=== PATIENT | male | born 1955 | race Caucasian/White ===

== ENCOUNTER 2021-08-14 23:05 | Emergency (ER) | payer OTHER, SELFPAY ==
[2021-08-14 23:11] VITALS: BP 173/91; PULSE 81; RESP 16; TEMP 36.7; O2SAT 99
--- NOTE | 2021-08-14 23:18 | ED.EAR ---
HPI - Ear Problem General Chief complaint: Unspecified Stated complaint: Hearing aid cover stuck in ear Time Seen by Provider: 08/14/21 23:18 History of Present Illness HPI Narrative: 66-year-old male presents the emergency room for evaluation of a foreign object in his left ear. Patient states he was removing his hearing aid when the tip Related Data Allergies Allergy/AdvReac Type Severity Reaction Status Date / Time No Known Allergies Allergy Verified 02/03/21 07:14 Review of Systems Review of Systems: CONSTITUTIONAL: Denies fever, chills, or sweats. EYES: Denies visual changes, redness, or discharge. ENT: Reports foreign body in left ear CARDIOVASCULAR: Denies chest pain, palpitations, or edema. RESPIRATORY: Denies cough or dyspnea. GASTROINTESTINAL: Denies abdominal pain, nausea, vomiting, or diarrhea. GENITOURINARY: Denies dysuria or hematuria. SKIN: Denies rash or itching. MUSCULOSKELETAL: Denies back pain, joint pain, or myalgia. NEUROLOGIC: Denies headache, numbness, dizziness, or weakness. PSYCHIATRIC: Denies anxiety or depression. PMFSH Past Medical History Medical History Abnormal fasting glucose BMI 29.0-29.9,adult Colon cancer screening Elevated PSA Elevated PSA Encounter for preventive health examination Encounter for routine adult health examination without abnormal findings Encounter for special screening examination for neoplasm of prostate FHx: colon cancer Hearing loss HTN (hypertension) Mixed hyperlipidemia Multiple lipomas On correction drug therapy Family History Family History Mother Family history of lung cancer Patient's mother is Carcinoma of colon Other Family history of malignant neoplasm of ovary Social History Social History Smoking status: Never smoker Alcohol intake: current Exam Narrative: GENERAL: Well-appearing, well-nourished, and in no acute distress. HEAD: Normocephalic, atraumatic. EYES: PERRLA and EOMI. ENT: Nares clear, no rhinorrhea or epistaxis. Mucous membranes moist. Oropharynx without tonsillar hypertrophy exudate or other lesions. Very foreign object in the left ear canal CHEST: Clear to auscultation. No respiratory distress. No wheezes rales or rhonchi HEART: Regular rate and rhythm. No murmur heard. Normal peripheral pulses. EXTREMITIES: Normal range of motion. No edema. SKIN: Warm, dry, no rash. NEURO: No focal deficits. Alert and oriented x3. PSYCH: Normal mood and affect. Course Vital Signs Vital signs: Vital Signs Temperature 36.7 C 08/14/21 23:11 Pulse Rate 81 08/14/21 23:11 Respiratory Rate 16 08/14/21 23:11 Blood Pressure 173/91 H 08/14/21 23:11 Pulse Oximetry 99 08/14/21 23:11 Temperature 36.7 C 08/14/21 23:11 Pulse Rate 81 08/14/21 23:11 Respiratory Rate 16 08/14/21 23:11 Blood Pressure 173/91 H 08/14/21 23:11 Pulse Oximetry 99 08/14/21 23:11 Procedures Foreign Body Removal Foreign Body #1: Foreign Body Removal Date: 08/15/21 Foreign Body Removal Time: 00:07 Time Out Performed: yes Site: left and ear Description of foreign body: other Sedation/Analgesia: none Technique: removal with forceps Confirmed by:: direct visualization Complications: none Post-procedure exam: awake, alert Medical Decision Making Vital Signs Vital Signs: Vital Signs Temperature 36.7 C 08/14/21 23:11 Pulse Rate 81 08/14/21 23:11 Respiratory Rate 16 08/14/21 23:11 Blood Pressure 173/91 H 08/14/21 23:11 Pulse Oximetry 99 08/14/21 23:11 Temperature 36.7 C 08/14/21 23:11 Pulse Rate 81 08/14/21 23:11 Respiratory Rate 16 08/14/21 23:11 Blood Pressure 173/91 H 08/14/21 23:11 Pulse Oximetry 99 08/14/21 23:11 Discharge Plan Discharge Clin[facility]
== END 2021-08-15 00:30 | disposition home or self-care (01) ==
LOC: ANHED 08-15 00:21
PROVIDERS: Emergency Provider Nurse Practitioner Family; PCP Internal Medicine
DX: T16.2XXA Foreign body in left ear, initial encounter (principal); I10 Essential (primary) hypertension; E78.2 Mixed hyperlipidemia
CPT/HCPCS: 69200; 99282; A9270

== ENCOUNTER 2022-01-20 07:30 | Outpatient (CLI) | payer MEDICARE, SELFPAY ==
--- NOTE | 2022-01-20 07:45 | ECHO_ITS ---
Patient Info Name: Megan Eric Age: 66 years : 1955 Gender: Male Ht: 70 in Wt: 195 lbs BSA: 2.11 m2 HR: 54 bpm BP: 159 / 92 mmHg Technical Quality: Good Exam Date: 01/20/2022 8:28 AM Exam Location: [facility] Patient Status: Outpatient Admit Date: 01/20/2022 Staff Ordering Physician: Braulio Arrieta MD Diploma Dental Assistant: Nathan Machuca, LULY, RT Attending Provider: Braulio Arrieta MD Referring Physician: Meenakshi TROTTER; Exam Type: CA echo doppler color flow Study Info Indications I10 - Essential (primary) hypertension Complete two-dimensional, color flow and Doppler transthoracic echocardiogram is performed. Strain analysis performed. Summary 1. Complete two-dimensional, color flow and Doppler transthoracic echocardiogram is performed. 2. Left ventricular chamber dimension is normal. 3. Left ventricular systolic function is normal, estimated at 60-65%. 4. There is mildly increased left ventricular wall thickness. 5. The left ventricular diastolic function is abnormal. 6. E/e' 11 is mildly elevated. 7. Global longitudinal strain is normal at -17.2%. 8. Left atrial chamber dimension is mildly enlarged. 9. Right atrial chamber dimension is mildly enlarged. 10. There is mild aortic valve sclerosis. 11. There is mild to moderate aortic valve regurgitation. 12. There is mild mitral valve regurgitation. 13. There is mild tricuspid valve regurgitation. 14. The prox ascending aorta size is borderline dilated at 4.1 cm. Left Ventricle E/e' 11 is mildly elevated. Global longitudinal strain is normal at -17.2%. Left ventricular chamber dimension is normal. Left ventricular systolic function is normal, estimated at 60-65%. There is mildly increased left ventricular wall thickness. The left ventricular diastolic function is abnormal. Right Ventricle Right ventricular systolic function is normal and with normal TAPSE 2.7 cm. Right ventricular chamber dimension is normal. Left Atria Left atrial chamber dimension is mildly enlarged. Right Atria Right atrial chamber dimension is mildly enlarged. Aortic Valve The aortic valve is trileaflet. There is mild aortic valve sclerosis. There is no aortic valve stenosis. There is mild to moderate aortic valve regurgitation. Pulmonic Valve There is no pulmonic regurgitation. Mitral Valve There is no mitral valve stenosis. There is mild mitral valve regurgitation. Tricuspid Valve RVSP is not calculated due to an inadequate TR jet. There is mild tricuspid valve regurgitation. Pericardium/Pleural There is no pericardial effusion. Inferior Vena Cava Normal inferior vena cava with >50% collapse upon inspiration consistent with normal right atrial pressure, 5 mmHg. Aorta The prox ascending aorta size is borderline dilated at 4.1 cm. The aortic root size at the sinus of Valsalva is normal. Left Ventricular Outflow Tract Name Value Normal LVOT 2D LVOT Diameter 2.0 cm LVOT Doppler LVOT Peak Gradient 10 mmHg LVOT Mean Gradient 6 mmHg LVOT VTI 37 cm
== END 2022-01-20 07:31 | disposition home or self-care (01) ==
PROVIDERS: PCP Internal Medicine; Visit Provider Internal Medicine
DX: R01.1 Cardiac murmur, unspecified (principal); I10 Essential (primary) hypertension; I08.3 Combined rheumatic disorders of mitral, aortic and tricuspid valves; R93.1 Abnormal findings on diagnostic imaging of heart and coronary circulation
CPT/HCPCS: 93306

== ENCOUNTER 2022-05-29 09:00 | Outpatient (NON) | payer MEDICARE, SELFPAY | END 2022-05-29 09:01 | disposition home or self-care (01) | PROVIDERS: PCP Internal Medicine; Visit Provider Nurse Practitioner | DX: C44.519 Basal cell carcinoma of skin of other part of trunk (principal) | CPT/HCPCS: 88305 ==

== ENCOUNTER 2022-07-17 13:16 | Outpatient (NON) | payer MEDICARE, SELFPAY | END 2022-07-17 13:17 | disposition home or self-care (01) | PROVIDERS: PCP Internal Medicine; Visit Provider Nurse Practitioner | DX: C44.519 Basal cell carcinoma of skin of other part of trunk (principal) | CPT/HCPCS: 88305; 88331 ==

== ENCOUNTER 2024-08-08 09:56 | Outpatient (CLI) | payer MEDICARE, SELFPAY ==
--- NOTE | ~2024-08-08 | US_ITS ---
Limited Abdominal Sonogram: Real-time sonographic imaging of the right upper quadrant was performed. Clinical History: Abnormal blood chemistry findings Findings: The liver appears echogenic, with no evidence of mass lesion or bile duct dilatation. Main portal vein demonstrates normal direction of flow. The gallbladder is well distended, and appears no rmal with no evidence of gallstone or wall thickening. The common bile duct measures 5 mm. The visua lized pancreas, aorta, and IVC are unremarkable. Impression: Diffuse fatty infiltration of the liver. Reviewed, dictated and finalized at location M. Impression: Diffuse fatty infiltration of the liver.
== END 2024-08-08 09:57 | disposition home or self-care (01) ==
LOC: MICIMG 09:57
PROVIDERS: PCP Internal Medicine; Visit Provider Internal Medicine
DX: K76.0 Fatty (change of) liver, not elsewhere classified (principal); R79.89 Other specified abnormal findings of blood chemistry
CPT/HCPCS: 76705

== ENCOUNTER 2025-03-26 14:35 | Outpatient (CLI) | payer MEDICARE, SELFPAY ==
--- NOTE | 2025-03-26 15:02 | ECHO_ITS ---
Patient Info Name: Megan Eric Age: 69 years : 1955 Gender: Male Ht: 70 in Wt: 192 lbs BSA: 2.09 m2 HR: 59 bpm BP: 162 / 97 mmHg Technical Quality: Good Exam Date: 03/26/2025 3:13 PM Patient Status: O Admit Date: 03/26/2025 Exam Type: CA echo doppler color flow Complete two-dimensional, color flow and Doppler transthoracic echocardiogram is performed. Monitoring Analyst: Alberta Laguna Attending Provider: Braulio Arrieta MD Summary 1. Complete two-dimensional, color flow and Doppler transthoracic echocardiogram is performed. 2. Left ventricular chamber dimension is normal. 3. Ventricular septum is moderately sigmoid shaped. There is mild resting LVOT obstruction with max gradient of 10 mmHg suggestive of hypertrophic cardiomyopathy. 4. Left ventricular systolic function is normal, estimated at 65-70. 5. The left ventricular diastolic function is grade I diastolic dysfunction. 6. E/e' 12 is mildly elevated. 7. Left atrial chamber dimension is mildly enlarged. 8. There is mild aortic valve sclerosis. 9. There is mild aortic valve regurgitation. 10. There is trace mitral valve regurgitation. 11. Moderate systolic anterior motion of the mitral valve. 12. There is trace tricuspid valve regurgitation. 13. No pulmonary hypertension, estimated pulmonary arterial systolic pressure is 31 mmHg. 14. Dilated inferior vena cava with >50% collapse upon inspiration consistent with elevated right atrial pressure, 10 mmHg. Left Ventricle Ventricular septum is moderately sigmoid shaped. There is mild resting LVOT obstruction with max gradient of 10 mmHg suggestive of hypertrophic cardiomyopathy. Left ventricular chamber dimension is normal. Left ventricular systolic function is normal, estimated at 65-70. The left ventricular diastolic function is grade I diastolic dysfunction. E/e' 12 is mildly elevated. Right Ventricle Right ventricular chamber dimension is normal. Right ventricular systolic function is normal and with normal TAPSE 2.6 cm. Left Atria Left atrial chamber dimension is mildly enlarged. Right Atria Right atrial chamber dimension is normal. Aortic Valve The aortic valve is trileaflet. There is mild aortic valve sclerosis. There is no aortic valve stenosis. There is mild aortic valve regurgitation. Pulmonic Valve There is no pulmonic regurgitation. Mitral Valve There is no mitral valve stenosis. There is trace mitral valve regurgitation. Moderate systolic anterior motion of the mitral valve. Tricuspid Valve There is trace tricuspid valve regurgitation. No pulmonary hypertension, estimated pulmonary arterial systolic pressure is 31 mmHg. Pericardium/Pleural There is no pericardial effusion. Inferior Vena Cava Dilated inferior vena cava with >50% collapse upon inspiration consistent with elevated right atrial pressure, 10 mmHg. Aorta The aortic root size at the sinus of Valsalva is normal. Left Ventricular Outflow Tract Name Value Normal LVOT 2D LVOT Diameter 2.0 cm LVOT Doppler LVOT Peak Velocity 170 cm/s LVOT Peak Gradient 12 mmHg LVOT Mean Gradient 7 mmHg LVOT VTI 46 cm LVOT VTI/AV VTI Ratio 0.8 LVOT Stroke Volume 142 ml LVOT CO 8.7 l/min LVOT CI 4.2 l/min/m2 Pulmonic Valve Name Value Normal RVOT Doppler RVOT Peak Velocity 71 cm/s RVOT Peak Gradient 2 mmHg PV Doppler PV Peak Velocity 101 cm/s PV Peak Gradient 4 mmHg Mitral Valve Name Value Normal MV Diastolic Function MV E Peak Velocity 82 cm/s MV A Peak Velocity 86 cm/s MV E/A 1.0 MV Decel Time (PW) 155 ms MV Annular TDI MV E/e' (Septal) 17.4 MV E/e' (Lateral) 9.2 MV E/e' (Average) 13.3 Tricuspid Valve Name Value Normal TV Regurgitation Doppler TR Peak Velocity 232 cm/s TR Peak Gradient 21 mmHg Estimated PAP/RSVP RA Pressure 10 mmHg <=5 PA Systolic Pressure 31 mmHg <36 RV Systolic Pressure 31 mmHg <36 Aortic Valve Name Value Normal AV Doppler AV Peak Velocity 234 cm/s AV Peak Gradient 17 mmHg AV Mean Gradient 10 mmHg AV VTI 58 cm AV Area (Cont Eq VTI) 2.5 cm2 >=3.0 AV Area (Cont Eq Bishnu) 2.2 cm2 AV DI (Bishnu) 0.73 AV Regurgitation 2D LVOT Area 3.1 cm2 Ventricles Name Value Normal LV Dimensions 2D/MM IVS Diastolic Thickness (2D) 1.1 cm 0.6-1.0 LVID Diastole (2D) 5.7 cm 4.2-5.8 LVIW Diastolic Thickness (2D) 1.0 cm 0.6-1.0 LVID Systole (2D) 3.7 cm 2.5-4.0 LVOT Diameter 2.0 cm LV Mass (2D Cubed) 238.04 g 88.00-224.00 LV Mass Index (2D Cubed) 114 g/m2 49-115 Relative Wall Thickness (2D) 0.35 <=0.42 LV Fractional Shortening/Ejection Fraction 2D/MM LV Fractional Shortening (2D) 35 % 25-43 LV EF (2D Teichholz) 63 % LV Diastolic Volume (4C MOD) 144 ml LV EF (4C MOD) 66 % LV Diastolic Volume (2C MOD) 140 ml LV EF (2C MOD) 72 % LV Diastolic Volume (BP MOD) 143 ml 62-150 LV Diastolic Volume Index (BP MOD) 69 ml/m2 34-74 LV Systolic Volume (BP MOD) 44 ml 21-61 LV Systolic Volume Index (BP MOD) 21 ml/m2 11-31 LV EF (BP MOD) 69 % 52-72 LV Diastolic Length (4C) 9.4 cm LV Systolic Length (4C) 7.6 cm LV Stroke Volume (4C MOD) 94 ml Atria Name Value Normal LA Dimensions LA Volume (4C A-L) 62 ml LA Volume (BP A-L) 76 ml RA Dimensions RA Area (4C) 13.2 cm2 <=18.0 Report Signatures
== END 2025-03-26 14:36 | disposition home or self-care (01) ==
PROVIDERS: PCP Internal Medicine; Visit Provider Internal Medicine
DX: I35.1 Nonrheumatic aortic (valve) insufficiency (principal); I34.0 Nonrheumatic mitral (valve) insufficiency; R01.1 Cardiac murmur, unspecified; I10 Essential (primary) hypertension; I35.8 Other nonrheumatic aortic valve disorders
CPT/HCPCS: 93306